=== PATIENT | male | born 1945 | race Caucasian/White ===

== ENCOUNTER → 2019-01-01 10:47 | Outpatient (BNVA) | payer MEDICARE, SELFPAY | PROVIDERS: PCP Physician Assistant Medical; Referring Provider Physician Assistant Medical; Visit Provider Orthopaedic Surgery | DX: Z09 Encounter for follow-up examination after completed treatment for conditions other than malignant neoplasm (principal); Z96.653 Presence of artificial knee joint, bilateral | CPT/HCPCS: 99212; 99213 ==

== ENCOUNTER 2019-10-29 10:46 | Outpatient (CLI) | payer MEDICARE, SELFPAY ==
--- NOTE | 2019-10-29 10:55 | DI.RAD_ITS ---
EXAM: XR KNEE RT 3V AP,LAT,ANASTASIA INDICATION: PAIN, INJURY S/P RIGHT TOTAL KNEE REPLACEMENT 2004. COMPARISON: KNEES BILAT AP LATERALS from 12/30/2015 TECHNIQUE: 2D digital imaging was performed. FINDINGS: There has been no change in the right knee prosthesis or surrounding bone. No joint effusion is visi ble. The patellar alignment appears stable. IMPRESSION: Stable right knee prosthesis.
== END 2019-10-29 11:06 ==
PROVIDERS: PCP Physician Assistant Medical; Referring Provider Physician Assistant Medical; Visit Provider Orthopaedic Surgery
DX: M25.561 Pain in right knee (principal); Z96.651 Presence of right artificial knee joint; S80.01XA Contusion of right knee, initial encounter; X58.XXXA Exposure to other specified factors, initial encounter
CPT/HCPCS: 73562; 99214

== ENCOUNTER → 2024-08-11 09:07 | Outpatient (BNVA) | payer MEDICARE, SELFPAY | PROVIDERS: PCP Physician Assistant Medical; Referring Provider Physician Assistant Medical; Visit Provider Student in an Organized Health Care Education/Training Program | DX: M16.11 Unilateral primary osteoarthritis, right hip (principal); M48.061 Spinal stenosis, lumbar region without neurogenic claudication; E11.9 Type 2 diabetes mellitus without complications | CPT/HCPCS: 99213 ==

== ENCOUNTER → 2024-08-18 14:56 | Outpatient (BNVA) | payer MEDICARE, SELFPAY | PROVIDERS: PCP Physician Assistant Medical; Referring Provider Physician Assistant Medical; Visit Provider Student in an Organized Health Care Education/Training Program | DX: M16.11 Unilateral primary osteoarthritis, right hip (principal) | CPT/HCPCS: 20611 ==

== ENCOUNTER 2024-09-12 02:28 | Outpatient (CLI) | payer MEDICARE, SELFPAY ==
[2024-09-12 11:23] LABS: HCT 44.1 % (40.0-50.0); MCH 33.1 pg (27.0-33.0); MCV 97 fL (80-95); MPV 9.5 fL (8.0-11.0); Platelet Count 271 10^3/uL (130-400); RBC 4.53 10^6/uL (4.36-5.78); RDW 12.2 % (11.8-14.1); RDW-SD 44.2 fL; WBC 8.32 10^3/uL (4.4-10.8)
[2024-09-12 12:54] LABS: Anion Gap 10.8 mmol/L (3-11); BUN 23 mg/dL (7-18); CO2 25.2 mmol/L (21.0-32.0); CREATININE 1.1 mg/dL (0.70-1.30); Calcium 9.4 mg/dL (8.5-10.1); Chloride 103 mmol/L (98-107); Estimated GFR 68.29 (mL/min/1.73m2); Glucose 86 mg/dL (74-106); Potassium 4.2 mmol/L (3.5-5.1); Sodium 139 mmol/L (136-145)
== END 2024-09-12 02:29 | disposition home or self-care (01) ==
LOC: LBO 02:29
PROVIDERS: PCP Physician Assistant Medical; Visit Provider Student in an Organized Health Care Education/Training Program
DX: M16.11 Unilateral primary osteoarthritis, right hip (principal); Z01.818 Encounter for other preprocedural examination
CPT/HCPCS: 36415; 80048; 85027; 99024; 72170

== ENCOUNTER 2024-09-12 11:32 | Outpatient (CLI) | payer MEDICARE, SELFPAY ==
--- NOTE | 2024-09-12 10:58 | DI.RAD_ITS ---
Exam(s) XR PELVIS AP EXAM: XR PELVIS AP CLINICAL HISTORY: DJD R HIP. TECHNIQUE: 2D digital imaging was performed. Single AP view. COMPARISON: CR XR HIP MIN 2V RT from 04/25/2024 FINDINGS: BONES: No acute fracture is present. No bony destructive lesion is seen. JOINTS: No dislocation present. Moderate right joint space narrowing is present, similar to prior. Left hip joint space is maintained. Mild bilateral acetabular spurring. Mild spurring and margins of the femoral necks bilaterally. Degenerative changes are also seen of the SI joints and pubic symp hysis. SOFT TISSUE: Vascular calcifications. IMPRESSION: No acute abnormality. Moderate degenerative changes of the right hip. DATA REPOSITORY: RADIATION DOSE DELIVERED:
== END 2024-09-12 11:33 | disposition home or self-care (01) ==
LOC: DIORS 11:33
PROVIDERS: PCP Physician Assistant Medical; Visit Provider Physician Assistant
DX: M16.11 Unilateral primary osteoarthritis, right hip (principal); Z01.818 Encounter for other preprocedural examination
CPT/HCPCS: 72170

== ENCOUNTER 2024-09-16 08:10 | Day surgery (SDC) | payer MEDICARE, SELFPAY ==
[2024-09-16] VITALS (18 sets, daily range): BP systolic 103–158; BP diastolic 49–78; PULSE 61–79; RESP 15–21; TEMP 35.9–36.6; O2SAT 90–96; BMI 32.9
--- NOTE | 2024-09-16 07:07 | W.PM.DSUDISC ---
Date of service: 09/16/24 Discharge Plan Disposition Patient Disposition: Home Condition: Good Discharge Details Reason For Visit: Right hip DJD Attending Provider: Alan Myles Primary Care Provider: Bhumika Miranda Home Meds and New Rx's Prescriptions: New celecoxib [Celebrex] 200 mg capsule 200 mg PO BID PRNQty: 60 0RF Rx Instructions: Take one tablet twice daily for pain and inflammation aspirin 81 mg tablet,delayed release (DR/EC) 81 mg PO BID 30 Days Qty: 60 0RF tramadol 50 mg tablet 50 mg PO Q6H PRN (Reason: severe postoperative pain) Qty: 24 0RF Rx Instructions: Take one tablet up to every 4 hours as needed for severe pain acetaminophen 500 mg tablet 1,000 mg PO Q8H PRN Qty: 90 0RF Rx Instructions: Take two tablets up to every 8 hours as needed for pain dexamethasone 4 mg tablet 4 mg PO DAILY Qty: 2 0RF Rx Instructions: Take one tablet once daily for two days docusate sodium [Colace] 100 mg capsule 100 mg PO BID Qty: 30 0RF Continued finasteride 5 mg tablet 5 mg PO DAILY furosemide 20 mg tablet 20 mg PO DAILY pantoprazole 40 mg tablet,delayed release (DR/EC) 40 mg PO DAILY simvastatin 20 mg tablet 20 mg PO DAILY tamsulosin 0.4 mg capsule 0.4 mg PO DAILY cholecalciferol (vitamin D3) 50 mcg (2,000 unit) capsule 50 mcg PO DAILY lisinopril 20 mg tablet 20 mg PO DAILY multivitamin [Daily Multiple] 1 EACH tablet 1 ea PO DAILY verapamil 180 MG tablet extended release 180 mg PO DAILY fenofibrate 160 MG tablet 160 mg PO DAILY Glucosamine Sulf-Chondroitin 1 EACH capsule 1 ea PO BID Discontinued aspirin [Aspir-81] 81 MG tablet,delayed release (DR/EC) 81 mg PO DAILY acetaminophen [Tylenol Extra Strength] 500 MG tablet 1,000 mg PO Q6H PRN Discharge Instructions Additional Instructions: Total Hip Discharge Instructions Activity: The most important activity is to walk. You should try to take short walks a few times a day. You have no restrictions on movement or positioning, but do not try to force what you do. You will find some stiffness and weakness with hip flexion (lifting your knee). Do not try to strengthen this too early, continue to practice walking and stairs and this will come. - Outpatient physical therapy can be helpful to help return you to a normal gait and improve your flexibility and strength. This can start around 2 weeks. For some patients, it?s not necessary. Usually this is determined at the time of discharge or at the first post-operative visit. - You should wear the NANY hose on both legs for 2 weeks. Dressing: Keep the surgical dressing in place for at least one week. After the first week it may be removed and replace with light gauze and tape or nothing. It may get wet after 3 days but avoid soaking the dressing. If it gets wet, just lightly pat dry. It is important to always keep some gauze between skin folds, especially when you are sitting. Spend some time with the wound exposed when you are lying flat as the incision does wrinkle onto itself. Medications: - You should take Tylenol and an anti-inflammatory Celebrex as your primary pain control medications. If the Celebrex is too expensive or not covered, please call the office for another alternative (Advil/Ibuprofen or Naproxen/Aleve). - You have been prescribed a stronger pain medication Tramadol for breakthrough pain, take as needed as prescribed. - You take a stomach acid reduction agent Pantoprozole at baseline - continue with this medication to help reduce stomach acid and reflux. - You have also been prescribed Decadron to help with post-operative nausea and pain. You will take this for two days starting tomorrow. - You will be taking Aspirin 81mg twice a day for DVT prevention unless instructed otherwise. - If you have constipation you should take Colace (which has been prescribed) or Miralax (which is available [id number]). It takes most people 3-4 days to have a bowel movement. Follow-up: 2 weeks If you have any acute concerns or questions, please do not hesitate to contact the office at [phone]. You may contact Dr. Myles with any questions after hours through the hospital at [phone] or on his cell phone at [phone]. Stand Alone Forms: Anesthesia Discharge InstDora, Leila Anguiano ([facility]) Referrals: Alan Myles MD [ [facility] STAFF PHYSICIAN] - 10/02/24 1:00 pm Equipment/Supplies: Walker Activity:: Elevate Remove Dressings/Wound Care:: Do Not Remove Shower/Bathe:: Cover Diet:: As Tolerated Discharge Orders Discharge Orders: Discharge Order (Routine); Ordered 09/16/24 Ordered By: Debbie Fulton
[2024-09-16] MEDS: Acetaminophen 500 MG TAB 1000 MG PO (08:47)
[2024-09-16] MEDS: Gabapentin 300 MG CAP PO (08:47)
[2024-09-16] MEDS: Normal Saline 1,000 ML 30 ML IV (09:14)
--- NOTE | 2024-09-16 09:42 | W.ANESPRE ---
General Info Date of Service Date Performed: 09/16/24 Height: 5 ft 10 in Weight: 104.1 kg Body Mass Index (BMI): 32.9 Surgical Procedure: Operation Date: 09/16/24 11:05 Proposed Procedure Side Surgeon p Hip Total Hip Anterior, ACTIS Right Alan Myles MD Actual Procedure Side Surgeon p Hip Total Hip Anterior, ACTIS Right Alan Myles MD Pre-Op Diagnosis Post-Op Diagnosis Degenerative joint disease of right hip Meds Allergies and Home Medications Allergies Allergy/AdvReac Type Severity Reaction Status Date / Time oxycodone Allergy Mild HIVES RASH Verified 09/16/24 08:50 Home Medication ?Medication ?Instructions ?Recorded acetaminophen 500 mg tablet 1,000 mg PO Q6H PRN 01/04/17 (Tylenol Extra Strength) aspirin 81 mg tablet,delayed 81 mg PO DAILY 01/04/17 release (Aspir-) fenofibrate 160 mg tablet 160 mg PO DAILY 01/04/17 glucosamine sulfate dipotassium Cl 1 ea PO BID 01/04/17 500 mg-chondroitin 400 mg capsule (Glucosamine Sulfate 2 KCL-Chondroitin) multivitamin (Daily Multiple 1 ea PO DAILY 01/04/17 tablet) verapamil 180 mg tablet,extended 180 mg PO DAILY 01/04/17 release cholecalciferol (vitamin D3) 50 50 mcg PO DAILY 06/10/24 mcg (2,000 unit) capsule finasteride 5 mg tablet 5 mg PO DAILY 06/10/24 furosemide 20 mg tablet 20 mg PO DAILY 06/10/24 pantoprazole 40 mg tablet,delayed 40 mg PO DAILY 06/10/24 release simvastatin 20 mg tablet 20 mg PO DAILY 06/10/24 tamsulosin 0.4 mg capsule 0.4 mg PO DAILY 06/10/24 lisinopril 20 mg tablet 20 mg PO DAILY 08/11/24 Current Visit Medications: Current Medications Generic Name Dose Route Start Last Admin Trade Name Freq PRN Reason Stop Dose Admin Acetaminophen 1,000 mg 09/16/24 06:00 09/16/24 08:47 Acetaminophen 500 Mg Tab PO 09/16/24 16:00 1,000 mg PREOP WILMER Administration Gabapentin 300 mg 09/16/24 06:00 09/16/24 08:47 Gabapentin 300 Mg Cap PO 09/16/24 16:00 300 mg PREOP WILMER Administration Hydromorphone HCl 0.5 mg 09/16/24 07:04 Hydromorphone 1 Mg/Ml Syr IVP 10/16/24 07:03 Q2H PRN PRN Cefazolin Sodium/Dextrose 2 gm in 50 mls @ 100 mls/hr 09/16/24 06:00 Ancef Duplex IVPB 09/16/24 16:00 PREOP WILMER Tranexamic Acid 1,000 mg/ 110 mls @ 660 mls/hr 09/16/24 06:00 Sodium Chloride IVPB 09/16/24 16:00 PREOP WILMER Cefazolin Sodium/Dextrose 1 gm in 50 mls @ 100 mls/hr 09/16/24 08:00 Ancef Duplex IVPB 09/17/24 00:29 Q8H WILMER Sodium Chloride 1,000 mls @ 30 mls/hr 09/16/24 09:12 09/16/24 09:14 Saline 1000ml Bag IV 10/16/24 09:11 30 mls/hr INFUSION WILMER Administration IV Miscellaneous Supplies 1 each 09/16/24 06:00 Iv Access IV 10/15/24 23:59 DIRECTED WILMER Sodium Chloride 0 ml 09/16/24 06:00 Normal Saline Flush 10 Ml Syr IV 10/15/24 23:59 PRN PRN Sodium Chloride 0 ml 09/16/24 06:00 Normal Saline 10 Ml Vial IJ 10/15/24 23:59 DIRECTED PRN Sterile Water 0 ml 09/16/24 06:00 Water,Injection,Sterile 10 Ml Vial IJ 10/15/24 23:59 DIRECTED PRN PFSH Active Problems Active Problems: Problem Status Onset Code History of total right hip replacement Acute 09/16/24 Z96.641 Hypertension Chronic I10 Spinal stenosis Acute M48.00 FRANCHESCA (obstructive sleep apnea) Chronic G47.33 Neuropathy due to type 2 diabetes mellitus Acute E11.40 Gout Chronic M10.9 Contusion of right knee Acute S80.01XA Medical History Medical History (Updated 09/16/24 @ 09:25 by Sotero Heller RN) Bilateral plantar fasciitis Hyperlipidemia GERD (gastroesophageal reflux disease) Chronic constipation BPH (benign prostatic hyperplasia) Surgical History Surgical History (Updated 09/16/24 @ 09:25 by Sotero Heller RN) History of endoscopy History of colonoscopy Cervical radiculopathy s/p cerivcal fusion Maryjo Sweet Day ~2012 History of hernia repair silvia inguinal Replacement of total knee joint bilat Tobacco Smoking/Tobacco Use Status: Never Alcohol Alcohol Intake: never Substance Use Substance use: Never Substance use type: does not use Vital Signs and Lab Results Vital Signs Most Recent Vital Signs in EMR: Most Recent Vital Signs Temp Pulse Resp BP Pulse Ox 36.6 C 79 17 158/78 H 96 09/16/24 08:34 09/16/24 08:34 09/16/24 08:34 09/16/24 08:34 09/16/24 08:34 Point of Care Results Point of Care Results: Finger Stick Blood Glucose 111 09/16/24 10:01 Lab Results Blood Type / Crossmatch: No Data to Display Complete Blood Count: White Blood Count 8.32 10^3/uL (4.4-10.8) 09/12/24 11:15 Red Blood Count 4.53 10^6/uL (4.36-5.78) 09/12/24 11:15 Hemoglobin 15.0 g/dL (13.5-17.5) 09/12/24 11:15 Hematocrit 44.1 % (40.0-50.0) 09/12/24 11:15 Platelet Count 271 10^3/uL (130-400) 09/12/24 11:15 Complete Metabolic Panel: Sodium 139 mmol/L (136-145) 09/12/24 11:15 Potassium 4.2 mmol/L (3.5-5.1) 09/12/24 11:15 Chloride 103 mmol/L (98-107) 09/12/24 11:15 Carbon Dioxide 25.2 mmol/L (21.0-32.0) 09/12/24 11:15 BUN 23 mg/dL (7-18) H 09/12/24 11:15 Creatinine 1.1 mg/dL (0.70-1.30) 09/12/24 11:15 Est GFR (CKD-EPI 2020) 68.29 (mL/min/1.73m2) 09/12/24 11:15 Calcium 9.4 mg/dL (8.5-10.1) 09/12/24 11:15 Glucose 86 mg/dL (74-106) 09/12/24 11:15 Hemoglobin A1c 5.6 % (4.5-5.7) 09/12/24 10:23 Liver Function Panel: No Data to Display Coagulation Panel: No Data to Display Cardiac Panel: No Data to Display Arterial Blood Gas: No Data to Display Venous Blood Gas: No Data to Display Pancreas Panel: No Data to Display Thyroid Panel: No Data to Display Infectious Disease: No Data to Display Blood Cultures: No Data to Display Toxicology Panel: No Data to Display Anesthesia Assessment and Plan Anesthesia History Personal History: No History of Anesthesia Complications Family History: No Family History of Anesthesia Complications Exercise Tolerance Exercise Tolerance: Metabolic Equivalents>4 Pertinent Negatives Pertinent Negatives: No Symptoms of GERD (controlled with med, taken this am), No Major Cardiovascular Symptoms or Complaints, No Major Pulmonary Symptoms or Complaints and No History of CVA/TIA Cardiac & Pulmonary Exam Cardiac Exam: Normal S1/S2 Heart Sounds Pulmonary Exam: Clear Bilateral Breath Sounds Implantable Cardiac Device Does patient have a Pacemaker or an ICD?: No Airway Exam Known Difficult Airway: No Mallampati Class: 2 Mouth Opening: Normal (> 3cm) Thyromental Distance: Greater than 3 cm Neck Range of Motion: History of Cervical Fusion Neck Circumference: Normal Teeth Condition: Normal Dentition ASA Classification ASA Score: ASA 3 Emergency Case?: No NPO Status NPO Status: NPO Clears >2 hours, Solids >8 hours Anesthesia Plan Resuscitation Status: Full Code Anesthesia Technique: General Anesthesia Airway Planned: Endotracheal Tube Monitors Used: Standard Monitors Preoperative Comments:: PT for lumbar radiculopathy within the last year, patient requests no spinal, plan GETA
[2024-09-16] MEDS: ceFAZolin 2 GM/50 ML BAG IVPB (10:25)
--- NOTE | 2024-09-16 11:55 | DI.RAD_ITS ---
Exam(s) XR HIP RT IN OR EXAM: XR HIP RT IN OR CLINICAL HISTORY: Degenerative joint disease of right hip TECHNIQUE: 2D and realtime digital imaging was performed. CONTRAST MATERIAL: Refer to procedure report. COMPARISON: CR XR PELVIS AP from 09/12/2024 FINDINGS: Fluoroscopy was provided for Dr. Myles during the performance of a right total hip arthroplasty. Please refer to the procedure report for complete details. Ka,r=6.34 mGy IMPRESSION: RADIATION DOSE DELIVERED: 0.0 2788.4 0
--- NOTE | 2024-09-16 13:24 | W.ANESPOSTOP ---
Postoperative Evaluation Date, Time and Location Date Performed: 09/16/24 Time Performed: 13:24 Patient Location: Day Surgery Unit Vital Signs Most Recent Imported Vital Signs: Most Recent Vital Signs Temp Pulse Resp BP Pulse Ox 35.9 C L 61 16 112/52 L 92 09/16/24 13:05 09/16/24 13:05 09/16/24 13:05 09/16/24 13:05 09/16/24 13:05 Pain Score Most Recent Pain Score: Most Recent Pain Score Pain Level 2 09/16/24 13:05 Assessment Mental Status: Awake (Alert & Oriented to Patient Baseline) Airway and Respiratory Function: Patent airway with normal (patient baseline) respiratory exam Cardiovascular Function: Hemodynamically Stable Hydration Status: Adequately Hydrated Nausea & Vomiting: No Nausea or Vomiting Pain: Pain is tolerable per patient Peripheral Nerve Block: Patient did not receive a nerve block
--- NOTE | 2024-09-16 14:41 | IN_ITS ---
PT Notes Visit Reasons: Right hip DJD Physical Therapy Day Surgery Initial Evaluation Date: 09/16/2024 Referring Doctor: Dr Myles PT Orders: PT CONSULT: s/p Ortho Surgery Precautions: WBAT RLE, TEDSx 2 weeks Patient Profile/Admitting Diagnosis: Pt is 79 yo male presenting s/p elective right PATRICIA d/t OA /DJD. PMHX: History of total right hip replacement Acute 09/16/24 Z96.641 Hypertension Chronic I10 Spinal stenosis Acute M48.00 FRANCHESCA (obstructive sleep apnea) Chronic G47.33 Neuropathy due to type 2 diabetes mellitus Acute E11.40 Gout Chronic M10.9 Contusion of right knee Acute S80.01XA Medical History Medical History (Updated 09/16/24 @ 09:25 by Sotero Heller RN) HTN Bilateral plantar fasciitis Hyperlipidemia GERD (gastroesophageal reflux disease) Chronic constipation BPH (benign prostatic hyperplasia) FRANCHESCA Spinal stenosis Neuropathy due to type 2 diabetes melitis Gout Contusion of right knee Surgical History Surgical History (Updated 09/16/24 @ 09:25 by Sotero Heller RN) History of endoscopy History of colonoscopy Cervical radiculopathy s/p cerivcal fusion ~2012History of hernia repair silvia inguinalReplacement of total knee joint bilat Social History/Home Situation: Pt resides in single level home with 3 steps to his breezeway then 1 step into the house. His laundry is in the basement which his family will assist him with. His daughter will be staying with him for a few days and then his nephew will be available. He is independent with light cooking and cleaning, Independent ADL and ambulation without device, (+) driving. 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 He reports he has a recliner he will use and grab bars in bathroom as well as a shower/tub seat and comfort height toilet. Equipment Owned/DME: fitted and issued FWW Subjective: Pt reports he feels a little off after standing from edbe of bed. Objective: [] General Observation: pt received semireclined on stretcher eating with ice pack to right lateral hip. His daughter was present Mental Status: A+O x 4 Pain:Right hip 12/01 Vitals: sit 147/77 ;stand 113/67 pt returned to chair with LEs elevated completed IV fluids and PT reapproached 50 mins later. pt with no reports of lightheadedness or dizziness. ROM: [] Right Upper Extremity: WNL Left Upper Extremity: WNL Right Lower Extremity: hip flexion 95 degrees, hip abduction 15 degrees, knee and ankle WFL Left Lower Extremity:WNL Strength: [] Right Upper Extremity: 5/5 Left Upper Extremity: 5/5 Right Lower Extremity: hip 3-/5, knee 3/5, ankle 3/5 Left Lower Extremity: grossly 5/5 Sensation: intact BUE and BLE Bed Mobility/Transfers: Supine to sit independent sit to supine CGA for RLE Sit to stand Supervision with verbal cues for safe hand placement to push up from surface Stand to sit supervision with verbal cues for safe hand placement to reach back Bed to chair Supervision with FWW Gait: Facilitated safe and correct performance of level surface ambulation covering a distance of 200 feet using use front wheeled walker with supervision and wheelchair follow for safety. Did not report of any increased pain. Denied headache, chest pain, and lightheadedness throughout activity. Minimal verbal cueing provided for AD management, directional changes, and posture. Stairs: 4 steps with rail CGA step to pattern with verbal cues for proper sequencing leading with LLE up and RLE down Balance: Static Sitting:Normal Dynamic Sitting: Good - Static Standing: Good with FWW Dynamic Standing: Fair + Special Tests: Mobility Limitations Standardized Measure [facility] 6 clicks Basic Mobility Inpatient Short Form: Raw Score:21 CMS Score: 28.91% Informed Consent/Education: Patient instructed in purpose of PT consult. Packet containing PATRICIA exercise protocol has been given to patient. Education and training on initial set of exercises that can be done at home have been completed with patient. Daughter able to provide CGA and instructed in step to pattern leading with LLE up and RLE down. Assessment: Pt is a 79 yo male presenting s/p elective PATRICIA. Pt initially post op he was lightheaded with s/s of orthostatic hypotension which resolved after 50 mins and continued IV hydration. Patient presents with clinical signs and symptoms consistent with current/admitting diagnoses that have resulted to mobility limitations, gait instability, generalized weakness, and impairment of motor control as demonstrated by the following impairment level findings: 1. Decreased strength to right hip major muscle groups 2. Impaired standing balance 3. Limitation of joint range of motion in right hip 4. decreased functional activity tolerance in standing Impairments are contributing to the following functional limitations: 1. Inability to safely ambulate without assistive device 2. Increase completion time for mobility ADL performance 3. Increased fall risk 4. impaired ability to perfrom stairs safely without assistance Patient is assessed as a moderate complexity based on the following: History: 79-year-old male with impairment level findings, functional limitations, and past medical history as indicated above Examination: Demonstrable impairment in strength, balance, and mobility level with underlying impairments and functional limitations as documented above Presentation: stable Decision Making: moderate Goals: N/A. Plan of Care/Treatment Plan: N/A. DISCHARGE RECOMMENDATIONS: Home with HEP and use of FWW initially. TREATMENT CODE/TIME: [id number] /[id number], [id number] Thank you for the opportunity to participate in the care of this patient. Ngozi Jones PT Please sign an return this page within 30 days if you agree with the above POC. Thank you! Physician Signature Date [facility]
--- NOTE | 2024-09-16 15:11 | ROE_ITS ---
Operative Note Operative Note PRE-OP DIAGNOSIS: Right hip Osteoarthritis POST-OP DIAGNOSIS: same PROCEDURE: Right Anterior Total Hip Arthroplasty with Intraoperative Navigation SURGEON: Alan Myles BACTERIOLOGIST INDUSTRIAL: Debbie Fulton ANESTHESIA TYPE: General LMA/ETT Refer to Anesthesia Record ESTIMATED BLOOD LOSS: 300 PATHOLOGY: none sent TOURNIQUET TIME: 0 COMPLICATIONS: None Patient was transported to: PACU Patient's condition: stable Implants: 1. Depuy [place] Acetabular Component, 58mm 2. Depuy Acetabular Liner, [id number] 3. Depuy Actis High Collared Femoral Stem, Size 7 4. Depuy Altrx Ceramic Femoral Head, Size 36+1.5mm Indications: I have seen Earl in clinic for symptoms of hip arthritis, confirmed with radio graphic findings and diagnostic intra-articular injection. Earl has exhausted nonoperative methods and was having significant limitations in daily function and desired better function and less pain. I discussed the technical details of a hip replacement. I explained the risks of the procedure to include, but not limited to, bleeding, infection, pain, stiffness, fracture, damage to nerves and vessels, damage to muscles and tendons, loosening, instability, leg length inequality, need for repeat procedure, blood clot and cardiopulmonary demise. Despite these risks, he elected to proceed. Findings: There was significant signs of arthritis throughout the hip. Procedure Description: Earl was greeted in the preoperative holding area where the correct side was identified and marked. The consent was reviewed with the patient and signed. The history and physical was updated. All questions were answered. He was taken back to the operating room. A general anesthetic was administered. The feet were wrapped with cast padding and Coban and then placed into the boot liners and then into the boots. Care was taken to protect the skin and make sure the heels were fully down and the boots were stable. The patient was then positioned onto the HANA table. Both legs were held in a neutral position. SCDs were applied. The patient was then slid down onto a peroneal post. Prophylactic antibiotics in the form of Cefazolin were administered. 1g of Tranxemic Acid was given intravenously within 30 minutes of incision. The right leg was then prepped with Chloraprep and draped in a standard fashion. A second prep with Chloraprep was performed prior to placement of a shower-curtain type drape with Iodine impregnated skin protection. A timeout to confirm correct identity, side and site, procedure, allergies, anesthesia, and medical concerns was performed. An obliquely oriented incision was made starting lateral to the ASIS and running distal over the Tensor Fascia Tania (TFL) muscle belly toward the fibular head, approximately 10cm. The skin and soft tissue was dissected sharply, through Jaswinder?s fascia, and to the fascia of the TFL. With the fascia and superior border of the IT band identified, the fascia was incised with a new knife just above any perforators from the IT band. The TFL muscle belly was bluntly dissected away from the fascia and moved laterally. The fat between TFL and rectus was identified to ensure the dissection was not within the TFL. Blunt dissection created space between abductors and the capsule and retractor was placed over the lateral femoral neck. The fibers of the rectus femoris tendon were identified and these were freed from the anterior capsule. A second cobra retractor was placed around the medial femoral neck. The TFL was further retracted laterally to show the deep fascia. Careful dissection through this layer identified three main crossing vessels of the lateral femoral circumflex. These were cauterized in multiple locations and then cut without any noticeable bleeding. The TFL was further released bluntly from the deep fascia to expose anterior hip capsule and fat The soft tissue retractor was then placed beneath the TFL and against sartorius and medial soft tissues to protect and retract the soft tissues. A T-capsulotomy was then performed starting at the superior lateral acetabulum and moving distally to the intertrochanteric ridge. These capsular flaps were tagged with a No. 1 Ethibond and elevated from within. The capsular flaps were released to the shoulder of the lateral neck and to the lesser trochanter to give excellent visualization of the proximal femur. A neck osteotomy was performed using an oscillating saw based on preoperative templates. This cut started in the shoulder and of the lateral neck and exited medially. The saw was at all times directed medially to avoid injury to the greater trochanter. Gross traction was applied to the leg and the osteotomy opened. The femoral head was removed with a corkscrew, making sure to protect the TFL on its exit. Traction was released after head removal. This was measured on the back table to determine the starting reamer size. Portions of the rectus obscuring visualization were minimally elevated off the superior acetabulum. An anterior retractor was placed over the anterior wall between capsule and labrum and attached to the Gripper retraction system. The femur was rotated to 90 degrees and medial capsule was fully released until the lesser trochanter was palpable and visible; the femur was returned to 30 degrees. A posterior retractor was placed similarly between capsule and labrum. This provided excellent visualization. The contents of the cotyloid fossa were removed with electrocautery and the labrum was removed with a knife. There was a notable floor osteophyte. There was significant chondromalacia of the superior acetabulum. Acetabular reaming began with a 54mm reamer. This first reaming was directed anterior to posterior and medial to get down to the true floor. This was inspected and reamed until the true floor was reached. The anterior retractor was then released and entry and exit was provided by traction on the capsular flaps. I then reamed sequentially up to a 58mm reamer where good fit was obtained. The larger reamers were oriented based on anatomical reference of the anterior and lateral chang to ensure proper abduction and anteversion. Positioning and size was confirmed with the fluoroscopy. A 58mm Depuy [place] acetabular component was selected. The acetabulum was reamed around the periphery with the selected acetabular size to prevent a rim fit. The deep tissues were irrigated. The acetabular component was then impacted in a position of about 40-45 degrees of abduction and 15-20 degrees of anteversion, using the patient?s anatomy as the ultimate landmark. Fluoroscopy was used to confirm this. There was excellent planishing hammer operator of the acetabular component and the inserting handle was removed. The acetabular liner, Depuy [id number] polyethylene liner, was inserted and lined up with the tines of the acetabular component. There was no soft tissue interposition. The liner was then impacted into position and confirmed to be well-seated. A portion of the sherry-articular cocktail was then injected around the acetabulum into the capsule and periosteum. This cocktail consisted of 123mg of Ropivacaine, 0.25mg of Epinephrine, 0.04mg of Clonidine, and 15mg of Ketorolac, diluted to 50cc. The leg was rotated to 120 degrees. Any remaining medial capsule was released until the lesser trochanter was easily palpable. A retractor was placed medially. The lateral capsule was further released into the shoulder to allow access to the greater trochanter. A Guo retractor was placed over the greater trochanter which allowed the trochanter to flip in front of the capsule for excellent exposure. The leg was brought down into maximal extension and 20 degrees of adduction while ensuring there was no impingement on the acetabulum. Any remnant capsule within the trochanter was released. Piriformis and obturator externis were identified and protected. There was excellent access to the proximal femur. The lateral neck remnant was removed with a rongeur. A blunt canal probe was used to identify the canal and trajectory for later broaching. A box osteotome initiated the broach course. A small curved rasp and a curved curette were used to work laterally. Broaching then began with a starter Actis broach. This was inserted manually around the trochanter and into the canal before mallet blows. The broach was seated to a few millimeters below the cut level based on the neck cut and the preoperative template. Sequential broaching was continued with the [employer] pneumatic broaching device until a tight fit was obtained with good rotational control of the femur. A trial standard neck was inserted along with a +5 trial head. The leg was brought out of extension and adduction and then reduced with traction and internal rotation. The leg was stable anteriorly in a position of 30 degrees of extension and 90 degrees of external rotation. Fluoroscopy was used to ensure there was no fracture and the stem was seated well. Leg lengths were checked with an AP pelvis and pelvic reference points. Software Artistry navigation system was used to confirm appropriate positioning and leg length and offset. This undercorrected the offset and therefore I would move up to a high offset neck but back to a +1.5 mm head. Once content with the desired offset and leg lengths, the leg was brought back into extension, external rotation and adduction. The periosteum and surrounding tissue was injected with remaining portion of the sherry-articular cocktail. The proximal femur was irrigated as well as the deep tissues. The Depuy Actis high offset collared stem, size 7, was then manually inserted into the proximal femur making sure to control rotation. It was then malleted into position with light blows, giving breaks to allow bone expansion and decrease risk of fracture. The selected Depuy Altrx Ceramic Head, size 36+1.5mm, was then placed onto the clean and dry trunnion and secured with impaction onto the tapered fit. The leg was brought back out of extension and adduction and reduced with traction and internal rotation. Stability was confirmed with no shuck at 90 degrees of external rotation and 30 degrees of extension. No impingement through range of motion arc. Final x-ray images were obtained with fluoroscopy to confirm adequate positioning and no intraoperative fracture. The deep tissues were thoroughly irrigated with Surgiphor, betadine solution. This was allowed to sit in the wound for 3 minutes before being thoroughly irrigated out with normal saline. The capsule was then reapproximated with the previously placed Ethibond sutures. The TFL fascia was finally closed with a No. 2 Stratafix, barbed suture. Deep tissues were then reapproximated with 0 Vicryl and a running 2-0 Vicryl. The skin was closed with a running 4-0 Monocryl in a subcuticular fashion. This was reinforced with skin glue. A Mepilex silver dressing was applied. At the end of the case, all counts were correct. Earl was transferred to the hospital bed without difficulty and suffering no apparent complication. Earl has a good prognosis. Physical therapy will start today and without restrictions, weight-bearing as tolerated. Aspirin 81mg BID will be used for DVT prophylaxis. Date of Procedure: 09/16/24
== END 2024-09-16 16:10 | disposition home or self-care (01) ==
LOC: SUR 08:10
PROVIDERS: PCP Physician Assistant Medical; Visit Provider Student in an Organized Health Care Education/Training Program
PROC: (CPT 27130; principal; 2024-09-16 10:45)
DX: M16.11 Unilateral primary osteoarthritis, right hip (principal); I10 Essential (primary) hypertension; M48.00 Spinal stenosis, site unspecified; G47.33 Obstructive sleep apnea (adult) (pediatric); E11.42 Type 2 diabetes mellitus with diabetic polyneuropathy; K21.9 Gastro-esophageal reflux disease without esophagitis
CPT/HCPCS: 20985; 27130; 97162; 97530; 73501; C1776; J0690; J1100; J1805; J2003; J2371; J2401; J2405; J2704; J3010

== ENCOUNTER 2024-10-02 15:27 | Outpatient (CLI) | payer MEDICARE, SELFPAY ==
--- NOTE | 2024-10-02 13:12 | DI.RAD_ITS ---
Exam(s) XR HIP RT COMPLETE AP PELVIS EXAM: XR HIP RT COMPLETE AP PELVIS CLINICAL HISTORY: 1st post op s/p R PATRICIA. TECHNIQUE: 2D digital imaging was performed. Two views COMPARISON: CR XR PELVIS AP from 09/12/2024 XA XR HIP RT IN OR from 09/16/2024 FINDINGS: BONES: Stable alignment of right hip prosthesis. No surrounding bony lucencies. No acute fracture is present. No bony destructive lesion is seen. JOINTS: No dislocation present. The left hip joint space is maintained. Mild acetabular spurring. SOFT TISSUE: Nor vascular calcifications. IMPRESSION: Stable appearance of right hip prosthesis. DATA REPOSITORY: RADIATION DOSE DELIVERED:
== END 2024-10-02 15:28 | disposition home or self-care (01) ==
LOC: DIORS 15:28
PROVIDERS: PCP Physician Assistant Medical; Referring Provider Physician Assistant Medical; Visit Provider Physician Assistant
DX: Z96.641 Presence of right artificial hip joint (principal); Z47.1 Aftercare following joint replacement surgery
CPT/HCPCS: 99024; 73502

== ENCOUNTER → 2024-10-27 14:30 | Outpatient (BNVA) | payer MEDICARE, SELFPAY | PROVIDERS: PCP Physician Assistant Medical; Referring Provider Physician Assistant Medical; Visit Provider Student in an Organized Health Care Education/Training Program | DX: Z47.1 Aftercare following joint replacement surgery (principal); Z96.641 Presence of right artificial hip joint | CPT/HCPCS: 99024 ==

== ENCOUNTER → 2025-02-23 12:47 | Outpatient (BNVA) | payer MEDICARE, SELFPAY | PROVIDERS: PCP Physician Assistant Medical; Referring Provider Physician Assistant Medical; Visit Provider Student in an Organized Health Care Education/Training Program | DX: G56.02 Carpal tunnel syndrome, left upper limb (principal) | CPT/HCPCS: 99214 ==

== ENCOUNTER 2025-03-25 09:41 | Day surgery (SDC) | payer MEDICARE, SELFPAY ==
--- NOTE | 2025-03-25 07:26 | W.PM.DSUDISC ---
Date of service: 03/25/25 Discharge Plan Disposition Patient Disposition: Home Condition: Good Discharge Details Reason For Visit: L ECTR Attending Provider: Alan Myles Primary Care Provider: Bhumika Miranda Home Meds and New Rx's Prescriptions: New acetaminophen 500 mg tablet 1,000 mg PO TID Qty: 90 0RF ibuprofen 600 mg tablet 600 mg PO TID PRN (Reason: pain) Qty: 90 0RF Continued finasteride 5 mg tablet 5 mg PO DAILY furosemide 20 mg tablet 20 mg PO DAILY simvastatin 20 mg tablet 20 mg PO DAILY tamsulosin 0.4 mg capsule 0.4 mg PO DAILY cholecalciferol (vitamin D3) 50 mcg (2,000 unit) capsule 50 mcg PO DAILY lisinopril 20 mg tablet 20 mg PO DAILY multivitamin [Daily Multiple] 1 EACH tablet 1 ea PO DAILY verapamil 180 MG tablet extended release 180 mg PO DAILY fenofibrate 160 MG tablet 160 mg PO DAILY Glucosamine Sulf-Chondroitin 1 EACH capsule 1 ea PO BID Discharge Instructions Stand Alone Forms: Shar Rodriguez Tunnel Release Activity:: Activity as Tolerated Remove Dressings/Wound Care:: 48 hours Shower/Bathe:: 48 hours Diet:: As Tolerated Discharge Orders Discharge Orders: Discharge Order (Routine); Ordered 03/25/25 Ordered By: Lei Rain DS: Diagnosis Discharge Diagnosis (1) Left carpal tunnel syndrome: Status: Acute
[2025-03-25 10:21] VITALS: BP 139/80; PULSE 81; RESP 20; TEMP 36.6; O2SAT 95
[2025-03-25] MEDS: Cephalexin 500 MG CAP 1000 MG PO (11:30)
[2025-03-25] MEDS: Lidocaine 1% Multi-Dose W/EPI 1/100,000 50 ML VIAL (12:06)
[2025-03-25] MEDS: Sodium Bicarbonate 50 MEQ/50 ML VIAL (12:06)
[2025-03-25 12:23] VITALS: BP 131/65; PULSE 69; RESP 18; TEMP 36.5; O2SAT 94
[2025-03-25] MEDS: Acetaminophen 325 MG TAB 650 MG PO (12:44)
--- NOTE | 2025-03-25 12:49 | ROE_ITS ---
Operative Note Operative Note PRE-OP DIAGNOSIS: Left Carpal Tunnel Syndrome POST-OP DIAGNOSIS: same PROCEDURE: Left Endoscopic Carpal Tunnel Release SURGEON: Alan Myles ANESTHESIA TYPE: Local By Surgeon Refer to Anesthesia Record ESTIMATED BLOOD LOSS: 0 PATHOLOGY: none sent TOURNIQUET TIME: 7 COMPLICATIONS: None Patient was transported to: same day Patient's condition: stable Indications: I have seen Earl in clinic for symptoms of carpal tunnel syndrome. The numbness, tingling, and pain limited function. Clinical exam findings confirmed the diagnosis of carpal tunnel syndrome. Nonoperative measures such as bracing, time, activity modifications had been tried but disability and pain persisted. I discussed carpal tunnel release with the patient. I reviewed the risks of the procedure to include, but not limited to, bleeding, infection, pain, stiffness, incomplete release, damage to nerves or vessels, persistent numbness, recurrence. Despite these risks, the patient elected to proceed. Findings: There was tightened carpal tunnel. This was dilated and released successfully with the endoscopic with increased space within the tunnel. The antebrachial fascia was released proximally freeing the median nerve at the wrist. Procedure Description: Earl was greeted in the preoperative holding area where the correct side was identified and marked. The consent was reviewed with the patient and signed. The history and physical was updated. All questions were answered. He was taken back to the operating room. The patient was placed into the supine position on the operating room table with the left arm on an arm board. A nonsterile tourniquet was placed high onto the arm. All bony prominences were well padded. Prophylactic antibiotics in the form of Cefazolin were administered. The left arm was then prepped with Chloraprep and draped in a standard fashion with stockinette and extremity drape. A timeout to confirm correct identity, side and site, procedure, allergies, anesthesia, and medical concerns was performed. The surgical site was marked in the volar wrist creases in line with the radial border of the fourth ray. This area was anesthetized with approximately 6cc of 1% Lidocaine. The limb was then exsanguinated with an Esmarch. The skin was incised with a 15 blade, approximately 1cm. The skin only was cut and the deeper tissue was dissected bluntly with a tenotomy scissor, avoiding passing nerve and venous structures. The fascia was penetrated and opened bluntly. A two-prong skin hook was placed under this proximal fascial edge. A series of hamate finders were used to identify and dilate the carpal tunnel. Synovial elevator was used to free synovial attachments to the underside of the transverse carpal ligament. My thumb was kept in the palm to nelson the distal extent of the carpal tunnel and correctly position the hand. The [employer]aire endoscope was inserted without difficulty and without resistance. Excellent visualization showed horizontally running fibers of the transverse carpal ligament (TCL). The distal extent of the TCL was visualized and the end of the scope palpated with the thumb. The blade was elevated and withdrawn from distal to proximal. The TCL was split into two flaps. The endoscope was re inserted to confirm complete release and any remnant ligament was incised. The scope was withdrawn and the proximal aspect of the carpal tunnel was grossly inspected and appeared release with the median nerve visible. The antebrachial fascia at the level of the wrist was then freed from the overlying skin and then the underlying median nerve with blunt dissection. This was transected longitudinally for about 3cm proximal to the wrist incision. The wound was then irrigated with easy flow of irrigant distally and proximally. The incision was closed with a single 4-0 Nylon suture. The wound was dressed with Xeroform, Gauze, Kerlix and Angelito. The tourniquet was deflated with the initial dressing and held with some pressure. Blood flow returned easily to all digits with capillary refill less than 2 seconds. The patient tolerated the procedure well and was returned to the Same Day Surgery area in a stable condition suffering no known complication. Date of Procedure: 03/25/25
== END 2025-03-25 13:10 | disposition home or self-care (01) ==
LOC: SUR 09:42
PROVIDERS: PCP Physician Assistant Medical; Visit Provider Student in an Organized Health Care Education/Training Program
PROC: 01N54ZZ Release Median Nerve, Percutaneous Endoscopic Approach (ICD-10-PCS; CPT 29848; principal; 2025-03-25 12:30)
DX: G56.02 Carpal tunnel syndrome, left upper limb (principal)
CPT/HCPCS: 29848; J2004

== ENCOUNTER → 2025-04-03 10:57 | Outpatient (BNVA) | payer MEDICARE, SELFPAY | PROVIDERS: PCP Physician Assistant Medical; Referring Provider Physician Assistant Medical; Visit Provider Physician Assistant | DX: Z47.89 Encounter for other orthopedic aftercare (principal); G56.02 Carpal tunnel syndrome, left upper limb | CPT/HCPCS: 99024 ==

== ENCOUNTER 2025-09-21 13:01 | Outpatient (CLI) | payer MEDICARE, SELFPAY ==
--- NOTE | 2025-09-21 08:45 | DI.RAD_ITS ---
Exam(s) XR HIP RT AP LAT ONLY EXAM: XR HIP RT AP LAT ONLY CLINICAL HISTORY: ANNUAL F/U R PATRICIA. TECHNIQUE: 2D digital imaging was performed. COMPARISON: CR XR HIP RT COMPLETE AP PELVIS from 10/02/2024 FINDINGS: Two views There is satisfactory position alignment of the components of the right hip prosthesis. No fracture or loosening evident. No evidence of osteomyelitis. IMPRESSION: Stable satisfactory appearance. DATA REPOSITORY: RADIATION DOSE DELIVERED:
== END 2025-09-21 13:02 | disposition home or self-care (01) ==
LOC: DIORS 13:02
PROVIDERS: PCP Physician Assistant Medical; Referring Provider Physician Assistant Medical; Visit Provider Student in an Organized Health Care Education/Training Program
DX: Z47.1 Aftercare following joint replacement surgery (principal); Z96.641 Presence of right artificial hip joint; M25.512 Pain in left shoulder
CPT/HCPCS: 99213; 73502